=== PATIENT | male | born 1960 | race African-American/Black ===

== ENCOUNTER 2018-09-30 04:28 | Inpatient (IN) | payer OTHER, MEDICAID ==
[~2018-09-30] VITALS: Ht 180.3 cm; Wt 644.6 kg
[2018-09-30 10:57] LABS: BASOPHILS % 0.9 % (0.0-2.0); EOSINOPHILS % 0.3 % (0.0-5.0); HEMATOCRIT. 44.2 % (42.0-52.0); HEMOGLOBIN. 14.3 g/dL (14.0-18.0); MEAN CORPUSCULAR HEMOGLOBIN 28.7 pg (28.0-32.0); MEAN CORPUSCULAR VOLUME 88.5 fL (80.0-94.0); MEAN PLATELET VOLUME 9.1 fl (7.4-10.4); MONOCYTES % 9.2 % (2.0-8.0); NEUTROPHILS % 71.6 % (40.0-76.0); PLATELET 265 x1000/uL (130-400); RED BLOOD CELL COUNT 4.99 mill/uL (4.7-6.1); RED CELL DISTRIBUTION WIDTH 13.6 % (11.6-14.6)
[2018-09-30 11:01] LABS: CLARITY URINE CLEAR (CLEAR); COLOR URINE DARK YELLOW (YELLOW); KETONES URINE 3+ (NEGATIVE); LEUKOCYTE ESTERASE URINE NEGATIVE (NEGATIVE); NITRITE URINE NEGATIVE (NEGATIVE); OCCULT BLOOD URINE NEGATIVE (NEGATIVE); PROTEIN URINE TRACE (NEGATIVE); SPECIFIC GRAVITY URINE 1.032 (1.005-1.030)
[2018-09-30 11:04] LABS: CHLORIDE 104 mEq/L (98-107)
[2018-09-30 11:06] LABS: INR 1.1; PROTHROMBIN TIME 11.1 sec (9.6-11.0)
[2018-09-30] MEDS ORDERED: IOHEXOL-300 100 ML BOTTLE ONE (11:44)
[2018-09-30 15:55] VITALS: BP 144/94
[2018-09-30] MEDS ORDERED: ONDANSETRON HCL 4MG/2ML INJ IV PRN (16:00)
[2018-09-30] MEDS ORDERED: ACETAMINOPHEN 325MG TABLET PO PRN (16:00)
[2018-09-30] MEDS ORDERED: DOCUSATE SODIUM 100MG CAPSULE PO PRN (16:00)
[2018-09-30] MEDS ORDERED: CLONIDINE 0.1MG TABLET PO PRN (16:00)
[2018-09-30] MEDS ORDERED: HYDROMORPHONE HCL/PF 2MG/ML CPJ IV PRN (16:00)
[2018-09-30] MEDS ORDERED: HYDROCODONE/ACETAMINOPHEN 5/325MG TABLET PO PRN (16:00)
[2018-09-30] MEDS ORDERED: LORAZEPAM 2MG/ML CPJ IV PRN (16:00)
[2018-09-30] MEDS ORDERED: GUAIFENESIN 200MG/10ML SUGAR FREE UDC PO PRN (16:00)
[2018-09-30] MEDS ORDERED: DIPHENHYDRAMINE 50MG/ML VIAL IV PRN (16:00)
[2018-09-30] MEDS ORDERED: MAGNESIUM/ALUMINUM HYDROXIDE/SIMETHICONE 30ML UDC PO PRN (16:00)
[2018-09-30] MEDS ORDERED: IPRATROPIUM/ALBUTEROL 0.5-3(2.5)MG/3ML NEB INH PRN (16:00)
[2018-09-30] MEDS ORDERED: NA PHOS,M-B/NA PHOS,DI-BA ENEMA 118ML PR PRN (16:00)
[2018-09-30 16:30] VITALS: BP 144/94
[2018-09-30] MEDS ORDERED: ENOXAPARIN 40MG/0.4ML SYR SUBCUT SCH (17:00)
[2018-09-30] MEDS: DEXT 5%/0.45% NACL 1000ML 1,000 ML IV SCH (17:28)
[2018-09-30 18:29] LABS: CHLORIDE 104 mEq/L (98-107)
[2018-09-30 20:00] VITALS: BP 155/95
[2018-10-01] VITALS: BP 139/86
[2018-10-01] MEDS: DEXT 5%/0.45% NACL 1000ML 1,000 ML IV SCH ×2 (01:16→11:10)
[2018-10-01 04:00] VITALS: BP 164/99
[2018-10-01 06:45] LABS: CHLORIDE 103 mEq/L (98-107)
[2018-10-01 06:59] LABS: BASOPHILS % 0.5 % (0.0-2.0); EOSINOPHILS % 1.4 % (0.0-5.0); HDL CHOLESTEROL 35 mg/dL (40-59); HEMATOCRIT. 42.5 % (42.0-52.0); LYMPHOCYTES % 20.2 % (20.0-50.0); MEAN CORPUSCULAR HEMOGLOBIN 28.8 pg (28.0-32.0); MEAN CORPUSCULAR VOLUME 87.5 fL (80.0-94.0); MEAN PLATELET VOLUME 9.6 fl (7.4-10.4); MONOCYTES % 9.6 % (2.0-8.0); NEUTROPHILS % 68.3 % (40.0-76.0); PLATELET 237 x1000/uL (130-400); RED BLOOD CELL COUNT 4.86 mill/uL (4.7-6.1); RED CELL DISTRIBUTION WIDTH 13.8 % (11.6-14.6)
[2018-10-01 07:11] LABS: LDL CHOLESTEROL 19 mg/dL (5-100)
[2018-10-01] MEDS ORDERED: DIATR MEGLU/DIATRIZOATE SOLN 120ML ONE (07:41)
[2018-10-01 08:00] VITALS: BP 158/81
== END 2018-10-01 12:10 | disposition left against medical advice (07) | DRG 247 ==
LOC: ER 04:28 → 6EST 12:34 → ENRESERV 15:01
PROVIDERS: ADMIT Internal Medicine; ATTEND Internal Medicine
DX: K56.609 Unspecified intestinal obstruction, unspecified as to partial versus complete obstruction (principal); E86.0 Dehydration; F10.21 Alcohol dependence, in remission; Z53.21 Procedure and treatment not carried out due to patient leaving prior to being seen by health care provider
CPT/HCPCS: 36415; 74177; 74250; 80048; 80061; 93005; 96372; 99285; J1650; Q9963; Q9967

== ENCOUNTER 2018-11-11 12:22 | Inpatient (IN) | payer SELFPAY ==
[~2018-11-11] VITALS: Ht 175.3 cm; Wt 52.6 kg
[2018-11-11] MEDS ORDERED: METOCLOPRAMIDE HCL 10MG/2ML VIAL IV STA (14:20)
[2018-11-11] MEDS ORDERED: FAMOTIDINE 20MG/2ML VIAL IV STA (14:20)
[2018-11-11] MEDS ORDERED: MAGNESIUM/ALUMINUM HYDROXIDE/SIMETHICONE 30ML UDC PO STA (14:20)
[2018-11-11] MEDS ORDERED: VISCOUS LIDOCAINE 2% 15 ML UDC PO STA (14:20)
[2018-11-11] MEDS ORDERED: DIPHENHYDRAMINE 50MG/ML VIAL IV ONE (14:30)
[2018-11-11 14:39] LABS: BASOPHILS % 0.4 % (0.0-2.0); EOSINOPHILS % 0.1 % (0.0-5.0); HEMOGLOBIN. 17.2 g/dL (14.0-18.0); LYMPHOCYTES % 11.6 % (20.0-50.0); MEAN CORPUSCULAR HEMOGLOBIN 28.8 pg (28.0-32.0); MEAN CORPUSCULAR VOLUME 87.3 fL (80.0-94.0); MEAN PLATELET VOLUME 9.5 fl (7.4-10.4); MONOCYTES % 6.5 % (2.0-8.0); NEUTROPHILS % 81.4 % (40.0-76.0); PLATELET 235 x1000/uL (130-400); RED BLOOD CELL COUNT 5.96 mill/uL (4.7-6.1); RED CELL DISTRIBUTION WIDTH 13.6 % (11.6-14.6)
[2018-11-11 14:45] LABS: CHLORIDE 93 mEq/L (98-107)
[2018-11-11] MEDS ORDERED: FUROSEMIDE 100MG/10ML VIAL IV STA (15:43)
[2018-11-11] MEDS ORDERED: SODIUM BICARBONATE 8.4% 1 MEQ/ML 50ML SYR IV ONE (15:45)
[2018-11-11] MEDS ORDERED: ALBUTEROL (0.083%) 2.5MG/3ML NEB HHN ONE (15:45)
[2018-11-11] MEDS ORDERED: DEXTROSE 50% WATER 50ML SYRINGE IV ONE (15:45)
[2018-11-11] MEDS ORDERED: INSULIN REGULAR (HUMULIN R) 300UNITS/3ML IV ONE (15:45)
[2018-11-11] MEDS ORDERED: SODIUM POLYSTYRENE SULFONATE 15 G/60 ML BOT PO ONE (15:45)
[2018-11-11] MEDS ORDERED: DEXT 5%/0.9% NACL 1,000 ML IV ONE (16:45)
[2018-11-11 18:43] LABS: CLARITY URINE CLEAR (CLEAR); COLOR URINE YELLOW (YELLOW); KETONES URINE 1+ (NEGATIVE); LEUKOCYTE ESTERASE URINE NEGATIVE (NEGATIVE); NITRITE URINE NEGATIVE (NEGATIVE); OCCULT BLOOD URINE NEGATIVE (NEGATIVE); PROTEIN URINE NEGATIVE (NEGATIVE); SPECIFIC GRAVITY URINE 1.016 (1.005-1.030); UROBILINOGEN URINE 0.2 E.U./dL (0.2-1.0)
[2018-11-11] MEDS ORDERED: ONDANSETRON HCL 4MG/2ML INJ IV PRN (23:45)
[2018-11-11] MEDS ORDERED: NA PHOS,M-B/NA PHOS,DI-BA ENEMA 118ML PR PRN (23:45)
[2018-11-11] MEDS ORDERED: ACETAMINOPHEN 650MG SUPP PR PRN (23:45)
[2018-11-11] MEDS ORDERED: IPRATROPIUM/ALBUTEROL 0.5-3(2.5)MG/3ML NEB INH PRN (23:45)
[2018-11-11] MEDS ORDERED: CLONIDINE 0.1MG TABLET PO PRN (23:45)
[2018-11-11] MEDS ORDERED: DIPHENHYDRAMINE 50MG/ML VIAL IV PRN (23:45)
[2018-11-11] MEDS ORDERED: DOCUSATE SODIUM 100MG CAPSULE PO PRN (23:45)
[2018-11-11] MEDS ORDERED: GUAIFENESIN 200MG/10ML SUGAR FREE UDC PO PRN (23:45)
[2018-11-11] MEDS ORDERED: MAGNESIUM/ALUMINUM HYDROXIDE/SIMETHICONE 30ML UDC PO PRN (23:45)
[2018-11-11] MEDS ORDERED: HYDROCODONE/ACETAMINOPHEN 5/325MG TABLET PO PRN (23:45)
[2018-11-11] MEDS ORDERED: ACETAMINOPHEN 650MG/20.3ML UDC GT PRN (23:45)
[2018-11-12] VITALS (7 sets, daily range): BP systolic 101–119; BP diastolic 60–82
[2018-11-12] MEDS ORDERED: SODIUM CHLORIDE 0.9% 1,000 ML IV SCH (01:00)
[2018-11-12] MEDS ORDERED: LACTULOSE 20G/30ML UDC PO NR (01:00)
[2018-11-12] MEDS: SODIUM CHLORIDE 0.9% INJ 3ML FLUSH IVF SCH ×2 (06:06→21:20)
[2018-11-12] MEDS: ENOXAPARIN 40MG/0.4ML SYR SUBCUT SCH (08:49)
[2018-11-12 09:01] LABS: BASOPHILS % 0.1 % (0.0-2.0); HEMATOCRIT. 47.9 % (42.0-52.0); HEMOGLOBIN. 16.2 g/dL (14.0-18.0); LYMPHOCYTES % 11.5 % (20.0-50.0); MEAN CORPUSCULAR HEMOGLOBIN 29.2 pg (28.0-32.0); MEAN CORPUSCULAR VOLUME 86.7 fL (80.0-94.0); MEAN PLATELET VOLUME 9.6 fl (7.4-10.4); MONOCYTES % 9.1 % (2.0-8.0); NEUTROPHILS % 79.3 % (40.0-76.0); PLATELET 207 x1000/uL (130-400); RED BLOOD CELL COUNT 5.53 mill/uL (4.7-6.1); RED CELL DISTRIBUTION WIDTH 13.5 % (11.6-14.6)
[2018-11-12 09:03] LABS: CHLORIDE 95 mEq/L (98-107)
[2018-11-12 09:11] LABS: LDL CHOLESTEROL 34 mg/dL (5-100)
[2018-11-12 09:13] LABS: CREATINE KINASE 38 IU/L (39-308); HDL CHOLESTEROL 61 mg/dL (40-59)
[2018-11-12 09:15] LABS: CREATINE KINASE MB FRACTION 1.9 ng/mL (0.5-3.6)
[2018-11-12] MEDS ORDERED: MORPHINE SULFATE 2 MG/ML CPJ (NOT FOR IM USE) IV PRN (11:15)
[2018-11-12] MEDS: FAMOTIDINE 20MG/2ML VIAL IV SCH (11:33)
[2018-11-12] MEDS: DEXT 5%/0.9% NACL 1,000 ML IV SCH (11:33)
[2018-11-12] MEDS ORDERED: SODIUM POLYSTYRENE SULFONATE 15 G/60 ML BOT PO PRN (12:00)
[2018-11-12 16:49] LABS: CREATINE KINASE 41 IU/L (39-308)
[2018-11-12 16:51] LABS: CREATINE KINASE MB FRACTION 1.7 ng/mL (0.5-3.6)
[2018-11-13] VITALS: BP 105/63
[2018-11-13] MEDS: DEXT 5%/0.9% NACL 1,000 ML IV SCH ×2 (00:52→13:55)
[2018-11-13 04:00] VITALS: BP 94/58
[2018-11-13] MEDS: SODIUM CHLORIDE 0.9% INJ 3ML FLUSH IVF SCH ×3 (05:53→19:56)
[2018-11-13 08:00] VITALS: BP 96/69
[2018-11-13] MEDS: FAMOTIDINE 20MG/2ML VIAL IV SCH (10:01)
[2018-11-13] MEDS: ENOXAPARIN 40MG/0.4ML SYR SUBCUT SCH (10:02)
[2018-11-13 11:49] VITALS: BP 105/78
[2018-11-13] MEDS ORDERED: DIATR MEGLU/DIATRIZOATE SOLN 120ML ONE ×3 (15:07→15:48)
[2018-11-13 17:19] VITALS: BP 110/74
[2018-11-13 18:49] LABS: CHLORIDE 104 mEq/L (98-107)
[2018-11-13 20:00] VITALS: BP 120/82
[2018-11-14] VITALS: BP 118/84
[2018-11-14 04:00] VITALS: BP 101/63
[2018-11-14] MEDS: SODIUM CHLORIDE 0.9% INJ 3ML FLUSH IVF SCH ×3 (05:20→21:47)
[2018-11-14] MEDS: DEXT 5%/0.9% NACL 1,000 ML IV SCH ×2 (05:20→21:44)
[2018-11-14 08:00] VITALS: BP 105/71
[2018-11-14] MEDS: ENOXAPARIN 40MG/0.4ML SYR SUBCUT SCH (09:30)
[2018-11-14] MEDS: FAMOTIDINE 20MG/2ML VIAL IV SCH (09:30)
[2018-11-14 12:13] VITALS: BP 130/88
[2018-11-14] MEDS ORDERED: DIATR MEGLU/DIATRIZOATE SOLN 30ML PO SCH (13:15)
[2018-11-14 16:00] VITALS: BP 140/83
[2018-11-14 20:00] VITALS: BP 136/84
[2018-11-15] VITALS: BP 103/68
[2018-11-15 00:40] VITALS: BP 103/68
[2018-11-15 04:00] VITALS: BP 115/76
[2018-11-15] MEDS: SODIUM CHLORIDE 0.9% INJ 3ML FLUSH IVF SCH ×3 (06:14→21:15)
[2018-11-15] MEDS ORDERED: FENTANYL CITRATE/PF 50MCG/ML 2ML VIAL ONE ×2 (07:16→08:56)
[2018-11-15] MEDS ORDERED: ROCURONIUM BROMIDE 10MG/ML VIAL 5ML IV ONE (07:17)
[2018-11-15] MEDS ORDERED: MIDAZOLAM HCL 2 MG/2 ML VIAL ONE (07:17)
[2018-11-15] MEDS ORDERED: PROPOFOL 200MG/20ML VIAL IV ONE ×2 (07:17→07:55)
[2018-11-15] MEDS ORDERED: LIDOCAINE HCL/PF 1% 10 MG/ML 5ML VIAL ONE (07:18)
[2018-11-15] MEDS ORDERED: CEFAZOLIN SODIUM 1000MG/VIAL ONE (07:20)
[2018-11-15] MEDS ORDERED: SODIUM CHLORIDE 0.9% 10ML VIAL ONE (07:20)
[2018-11-15] MEDS ORDERED: LEVOFLOXACIN 500MG PREMIX 100 ML IV ONE (07:23)
[2018-11-15] MEDS ORDERED: ONDANSETRON HCL 4MG/2ML INJ IV PRN ×2 (07:30→09:30)
[2018-11-15] MEDS ORDERED: ACETAMINOPHEN 650MG SUPP PR PRN (07:30)
[2018-11-15] MEDS ORDERED: BUPIVACAINE HCL/PF 0.5% (5MG/ML) 10ML ONE (08:45)
[2018-11-15] MEDS ORDERED: BUPIVACAINE HCL 0.5% 290 ML in ON-Q PM025 DRUG DELIV DEVICE 1 EA IR SCH (08:45)
[2018-11-15] MEDS ORDERED: ONDANSETRON HCL 4MG/2ML INJ ONE (09:00)
[2018-11-15] MEDS: ENOXAPARIN 40MG/0.4ML SYR SUBCUT SCH (09:00)
[2018-11-15] MEDS ORDERED: GLYCOPYRROLATE 0.2 MG/ML 2ML VIAL ONE (09:01)
[2018-11-15] MEDS ORDERED: BUPIVACAINE HCL 0.5% 290 ML in ON-Q PUMP (PM015=P270X4D) IR SCH (09:15)
[2018-11-15] MEDS: HYDROMORPHONE HCL/PF 2MG/ML CPJ IV PRN ×3 (09:58→11:09)
[2018-11-15] MEDS: FENTANYL CITRATE/PF 50MCG/ML 2ML VIAL IV PRN ×2 (10:06→10:33)
[2018-11-15 12:00] VITALS: BP 99/74
[2018-11-15] MEDS: MORPHINE SULFATE 4 MG/ML CPJ (NOT FOR IM USE) IV PRN (14:11)
[2018-11-15] MEDS: FAMOTIDINE 20MG/2ML VIAL IV SCH ×2 (14:11→21:15)
[2018-11-15] MEDS: DEXT 5%/0.45% NACL KCL 20MEQ/L 1,000 ML IV SCH (14:36)
[2018-11-15] MEDS: LEVOFLOXACIN 500MG PREMIX 100 ML IV SCH (14:37)
[2018-11-15 16:00] VITALS: BP 99/70
[2018-11-15 20:00] VITALS: BP 91/58
[2018-11-16] VITALS: BP 101/68
[2018-11-16 04:00] VITALS: BP 129/91
[2018-11-16] MEDS: DEXT 5%/0.45% NACL KCL 20MEQ/L 1,000 ML IV SCH (04:08)
[2018-11-16 08:00] VITALS: BP_SYST 128; BP_SYST 148; BP_DIAS 85; BP_DIAS 86
[2018-11-16] MEDS: DEXT 5%/0.9% NACL 1,000 ML IV SCH (10:55)
[2018-11-16] MEDS: LEVOFLOXACIN 500MG PREMIX 100 ML IV SCH (10:55)
[2018-11-16] MEDS: MORPHINE SULFATE 4 MG/ML CPJ (NOT FOR IM USE) IV PRN (10:56)
[2018-11-16] MEDS: ENOXAPARIN 40MG/0.4ML SYR SUBCUT SCH (10:56)
[2018-11-16] MEDS: FAMOTIDINE 20MG/2ML VIAL IV SCH ×2 (10:57→20:50)
[2018-11-16 12:00] VITALS: BP_SYST 113; BP_SYST 161; BP_DIAS 78; BP_DIAS 99
[2018-11-16] MEDS ORDERED: MORPHINE SULFATE 2 MG/ML CPJ (NOT FOR IM USE) IV PRN (14:50)
[2018-11-16 16:00] VITALS: BP 128/86
[2018-11-16 20:00] VITALS: BP 142/99
[2018-11-17] VITALS: BP 137/86
[2018-11-17] MEDS: DEXT 5%/0.45% NACL KCL 20MEQ/L 1,000 ML IV SCH ×3 (00:58→20:29)
[2018-11-17 08:00] VITALS: BP 143/98
[2018-11-17] MEDS: ENOXAPARIN 40MG/0.4ML SYR SUBCUT SCH (09:53)
[2018-11-17] MEDS: FAMOTIDINE 20MG/2ML VIAL IV SCH ×2 (09:53→20:29)
[2018-11-17 11:56] VITALS: BP 142/93
[2018-11-17] MEDS: SODIUM CHLORIDE 0.9% INJ 3ML FLUSH IVF SCH ×2 (14:00→22:35)
[2018-11-17 15:38] VITALS: BP 133/91
[2018-11-17 16:47] LABS: CHLORIDE 106 mEq/L (98-107)
[2018-11-17 17:00] LABS: BASOPHILS % 0.1 % (0.0-2.0); HEMATOCRIT. 35.9 % (42.0-52.0); HEMOGLOBIN. 11.9 g/dL (14.0-18.0); LYMPHOCYTES % 10.5 % (20.0-50.0); MEAN CORPUSCULAR HEMOGLOBIN 28.4 pg (28.0-32.0); MEAN PLATELET VOLUME 9.8 fl (7.4-10.4); MONOCYTES % 6.9 % (2.0-8.0); NEUTROPHILS % 82.5 % (40.0-76.0); PLATELET 150 x1000/uL (130-400); RED BLOOD CELL COUNT 4.17 mill/uL (4.7-6.1); RED CELL DISTRIBUTION WIDTH 13.7 % (11.6-14.6)
[2018-11-17 20:00] VITALS: BP 149/101
[2018-11-18] VITALS: BP 148/93
[2018-11-18] MEDS: SODIUM CHLORIDE 0.9% INJ 3ML FLUSH IVF SCH ×3 (05:49→22:34)
[2018-11-18 08:00] VITALS: BP 143/86
[2018-11-18] MEDS: FAMOTIDINE 20MG/2ML VIAL IV SCH ×2 (09:00→20:49)
[2018-11-18] MEDS: ENOXAPARIN 40MG/0.4ML SYR SUBCUT SCH (09:22)
[2018-11-18] MEDS ORDERED: LIDOCAINE HCL 1% 20ML VIAL (Pyxis) INJ ONE (11:14)
[2018-11-18 16:00] VITALS: BP 129/90
[2018-11-18] MEDS: DEXT 5%/0.45% NACL KCL 20MEQ/L 1,000 ML IV SCH ×3 (16:22→23:46)
[2018-11-18 17:18] LABS: BASOPHILS % 0.2 % (0.0-2.0); EOSINOPHILS % 0.1 % (0.0-5.0); HEMATOCRIT. 40.6 % (42.0-52.0); HEMOGLOBIN. 13.5 g/dL (14.0-18.0); LYMPHOCYTES % 10.9 % (20.0-50.0); MEAN CORPUSCULAR HEMOGLOBIN 28.6 pg (28.0-32.0); MEAN CORPUSCULAR VOLUME 86.3 fL (80.0-94.0); MEAN PLATELET VOLUME 9.6 fl (7.4-10.4); MONOCYTES % 4.8 % (2.0-8.0); PLATELET 191 x1000/uL (130-400); RED BLOOD CELL COUNT 4.71 mill/uL (4.7-6.1); RED CELL DISTRIBUTION WIDTH 13.7 % (11.6-14.6)
[2018-11-18 17:21] LABS: CHLORIDE 101 mEq/L (98-107)
[2018-11-18 20:00] VITALS: BP 143/83
[2018-11-19] VITALS: BP 137/90
[2018-11-19 04:00] VITALS: BP 140/84
[2018-11-19] MEDS: SODIUM CHLORIDE 0.9% INJ 3ML FLUSH IVF SCH ×3 (05:39→21:04)
[2018-11-19 08:00] VITALS: BP 147/87
[2018-11-19] MEDS: ENOXAPARIN 40MG/0.4ML SYR SUBCUT SCH (09:24)
[2018-11-19] MEDS: FAMOTIDINE 20MG/2ML VIAL IV SCH ×2 (09:25→21:04)
[2018-11-19 12:00] VITALS: BP 133/91
[2018-11-19] MEDS: DEXT 5%/0.45% NACL KCL 20MEQ/L 1,000 ML IV SCH ×2 (12:30→21:09)
[2018-11-19] MEDS ORDERED: POTASSIUM CHLORIDE 20MEQ TABLET SR PO NR (14:15)
[2018-11-19 16:00] VITALS: BP 158/95
[2018-11-19 20:00] VITALS: BP 123/85
[2018-11-20] VITALS: BP 143/93
[2018-11-20 04:00] VITALS: BP 142/93
[2018-11-20] MEDS: SODIUM CHLORIDE 0.9% INJ 3ML FLUSH IVF SCH ×2 (06:00→22:35)
[2018-11-20 08:00] VITALS: BP 143/84
[2018-11-20] MEDS: FAMOTIDINE 20MG/2ML VIAL IV SCH ×2 (08:40→20:04)
[2018-11-20] MEDS: ENOXAPARIN 40MG/0.4ML SYR SUBCUT SCH (08:40)
[2018-11-20] MEDS: DEXT 5%/0.45% NACL KCL 20MEQ/L 1,000 ML IV SCH (09:53)
[2018-11-20 11:11] VITALS: BP 141/86
[2018-11-20 16:00] VITALS: BP 154/96
[2018-11-20 20:00] VITALS: BP 139/81
[2018-11-21] VITALS: BP 154/89
[2018-11-21 04:00] VITALS: BP 133/85
[2018-11-21] MEDS: DEXT 5%/0.45% NACL KCL 20MEQ/L 1,000 ML IV SCH (05:34)
[2018-11-21] MEDS: SODIUM CHLORIDE 0.9% INJ 3ML FLUSH IVF SCH (06:33)
[2018-11-21 08:00] VITALS: BP 137/86
[2018-11-21] MEDS: ENOXAPARIN 40MG/0.4ML SYR SUBCUT SCH (08:48)
[2018-11-21] MEDS: FAMOTIDINE 20MG/2ML VIAL IV SCH (08:48)
[2018-11-21 11:35] VITALS: BP 143/93
[2018-11-21 12:17] VITALS: BP 143/93
== END 2018-11-21 14:30 | disposition home or self-care (01) | DRG 680 ==
LOC: ER 13:02 → 7WST 17:52 → EDBEDREQ 17:57 → ENRESERV 20:21 → 6EST 11-15 11:50
PROVIDERS: ADMIT Family Medicine; ATTEND Family Medicine
PROC: 0DB80ZZ Excision of Small Intestine, Open Approach (ICD-10-PCS; principal; 2018-11-15)
PROC: 0FB10ZZ Excision of Right Lobe Liver, Open Approach (ICD-10-PCS; 2018-11-15)
PROC: 07BB0ZZ Excision of Mesenteric Lymphatic, Open Approach (ICD-10-PCS; 2018-11-15)
PROC: 02HV33Z Insertion of Infusion Device into Superior Vena Cava, Percutaneous Approach (ICD-10-PCS; 2018-11-18)
PROC: B5181ZA Fluoroscopy of Superior Vena Cava using Low Osmolar Contrast, Guidance (ICD-10-PCS; 2018-11-18)
PROC: B548ZZA Ultrasonography of Superior Vena Cava, Guidance (ICD-10-PCS; 2018-11-18)
DX: C7A.00 Malignant carcinoid tumor of unspecified site (principal); K56.609 Unspecified intestinal obstruction, unspecified as to partial versus complete obstruction; C7B.02 Secondary carcinoid tumors of liver; E87.5 Hyperkalemia; K22.2 Esophageal obstruction; E86.0 Dehydration; J44.9 Chronic obstructive pulmonary disease, unspecified; K57.30 Diverticulosis of large intestine without perforation or abscess without bleeding; N40.0 Benign prostatic hyperplasia without lower urinary tract symptoms; R62.7 Adult failure to thrive; G89.29 Other chronic pain; R63.4 Abnormal weight loss; Z68.1 Body mass index [BMI] 19.9 or less, adult
CPT/HCPCS: 36415; 36569; 36573; 71045; 74018; 74176; 74270; 80048; 80061; 82378; 82550; 82553; 82962; 84132; 84484; 88307; 88309; 88331; 93005; 94644; 96374; 96375; 97116; 97162; 97166; 97530; 97535; 99285; C1725; C1893; J0690; J1170; J1200; J1650; J1815; J1940; J1956; J2250; J2270; J2405; J2704; J2765; J3010; J3490; J7030; J7042; J7050; J7070; J7611; Q9963